=== PATIENT | female | born 1945 | race Caucasian/White ===

== ENCOUNTER 2017-10-19 14:15 | Inpatient (IN) | payer MEDICARE ==
[~2017-10-19] VITALS: Ht 152.4 cm; Wt 51.3 kg
[2017-10-19] MEDS ORDERED: ONDANSETRON 2MG/ML, 2ML IVPush ONE (14:30)
[2017-10-19] MEDS ORDERED: SODIUM CHLORIDE 0.9% 1,000ML IVBOLUS ONE (14:30)
[2017-10-19] MEDS ORDERED: ONDANSETRON 2MG/ML, 2ML ONE (14:40)
[2017-10-19 15:00] LABS: ALBUMIN 3.3 g/dL (3.4-5.0); ANION GAP 15 mmol/L (5-15); CALCIUM 8.4 mg/dL (8.5-10.1); CHLORIDE 91 mmol/L (98-107)
[2017-10-19 15:08] LABS: ALKALINE PHOSPHATASE 139 U/L (45-117); BILIRUBIN,TOTAL 1.6 mg/dL (0.2-1.0); CREATININE 0.66 mg/dL (0.55-1.02); TOTAL PROTEIN 8.5 g/dL (6.4-8.2); TROPONIN I < 0.015 ng/mL (0.000-0.045)
[2017-10-19 15:16] LABS: ALANINE AMINOTRANSFERASE 24 U/L (12-78)
[2017-10-19 15:28] LABS: BASOPHILS # (AUTO) 0.09 x10^3/uL (0-0.1); BASOPHILS % (AUTO) 1 % (0-1); EOSINOPHILS # (AUTO) 0.05 x10^3/uL (0-0.4); EOSINOPHILS % (AUTO) 0 % (1-7); LYMPHOCYTES # (AUTO) 3.49 x10^3/uL (1-3.4); LYMPHOCYTES % (AUTO) 29 % (22-44); MD MORPH REVIEW ONLY; MEAN CORPUSCULAR HEMOGLOBIN 32.9 pg (27.0-34.8); MEAN CORPUSCULAR HGB CONC 33.8 g/dL (32.4-35.8); MEAN CORPUSCULAR VOLUME 97.4 fL (80-100); MONOCYTES # (AUTO) 1.14 x10^3/uL (0.2-0.8); MONOCYTES % (AUTO) 9 % (2-9); NEUTROPHILS # (AUTO) 7.43 x10^3/uL (1.8-6.8); NEUTROPHILS % (AUTO) 61 % (42-75); PLATELET COUNT 280 x10^3/uL (130-400); RED BLOOD COUNT 4.34 x10^6/uL (3.82-5.3); RED CELL DISTRIBUTION WIDTH 13.6 % (9.6-15.2)
[2017-10-19 15:29] LABS: <PLATELET ESTIMATE> ADEQUATE; <RBC MORPHOLOGY> NORMAL; GIANT PLATELETS 1+; LARGE PLATELETS 1+
[2017-10-19] MEDS ORDERED: OMNIPAQUE 350 MG/ML, 75ML BOTTLE ONE (16:08)
[2017-10-19] MEDS ORDERED: AMPICILLIN/SULBACTAM 3 GM in SODIUM CHLORIDE 0.9% 100 ML IV ONE (17:00)
[2017-10-19] MEDS ORDERED: morphine SULFATE 10 MG/ML, 1ML IVPush ONE (17:30)
[2017-10-19] MEDS ORDERED: OXYMETAZOLINE NASAL SPRAY 0.05%, 15ML NAS ONE (17:30)
[2017-10-19] MEDS ORDERED: DEXAMETHASONE 4 MG/ML, 1ML IVPush ONE (17:30)
[2017-10-19] MEDS ORDERED: OXYMETAZOLINE NASAL SPRAY 0.05%, 15ML ONE (17:41)
[2017-10-19] MEDS ORDERED: PROMETHAZINE 25 MG/ML, 1ML ONE (17:41)
[2017-10-19] MEDS ORDERED: DEXAMETHASONE 4 MG/ML, 1ML ONE (17:41)
[2017-10-19] MEDS ORDERED: MORPHINE SULFATE 4 MG/ML, 1ML ONE (17:42)
[2017-10-19] MEDS ORDERED: OMEP20TA62 PO (17:51)
[2017-10-19] MEDS ORDERED: PROMETHAZINE 25 MG/ML, 1ML IM ONE (18:30)
[2017-10-19] MEDS ORDERED: CEFTRIAXONE PMX 1GM/50ML 50 ML ONE (19:59)
[2017-10-19] MEDS: CEFTRIAXONE PMX 1GM/50ML 50 ML IV SCH (20:03)
[2017-10-19 20:31] VITALS: BP 182/92
[2017-10-19] MEDS ORDERED: SODIUM CHLORIDE 0.9% 1,000 ML IV SCH (21:38)
[2017-10-19] MEDS ORDERED: HYDROcodone/APAP 5/325 TABLET PO PRN (22:30)
[2017-10-19] MEDS ORDERED: ACETAMINOPHEN 325 MG TABLET PO PRN (22:30)
[2017-10-19] MEDS ORDERED: TEMAZEPAM 15 MG CAPSULE PO PRN (22:30)
[2017-10-19] MEDS ORDERED: ENALAPRILAT 1.25 MG/ML, 2ML IVPush PRN (22:30)
[2017-10-19] MEDS ORDERED: ONDANSETRON 2MG/ML, 2ML IVPush PRN (22:30)
[2017-10-19] MEDS ORDERED: DOCUSATE 100 MG CAPSULE PO PRN (22:30)
[2017-10-19] MEDS: SODIUM CHLORIDE 0.9% 1,000 ML IV SCH (22:43)
[2017-10-19] MEDS: DEXAMETHASONE 4 MG/ML, 1ML IVPush SCH (23:53)
[2017-10-20] MEDS: AMPICILLIN/SULBACTAM 3 GM in SODIUM CHLORIDE 0.9% 100 ML IV SCH ×3 (00:44→17:27)
[2017-10-20 01:29] VITALS: BP 137/78
[2017-10-20] MEDS: DEXAMETHASONE 4 MG/ML, 1ML IVPush SCH ×4 (05:32→23:36)
[2017-10-20] MEDS: SODIUM CHLORIDE 0.9% 1,000 ML IV SCH ×3 (05:32→22:21)
[2017-10-20 07:04] VITALS: BP 155/84
[2017-10-20] MEDS: OXYMETAZOLINE NASAL SPRAY 0.05%, 15ML NAS SCH ×2 (09:27→19:35)
[2017-10-20 14:08] VITALS: BP 147/78
[2017-10-20 14:46] LABS: CHLORIDE,URINE RANDOM 37 mmol/L; POTASSIUM,URINE RANDOM 51 mmol/L; SODIUM,URINE RANDOM 21 mmol/L
[2017-10-20] MEDS ORDERED: POTASSIUM CHLORIDE 20 MEQ TAB.ER.PRT PO ONE (15:30)
[2017-10-20] MEDS ORDERED: MAGNESIUM SULFATE PMX 2GM/50ML 50 ML IV ONE (15:30)
[2017-10-20 16:49] LABS: BASOPHILS # (AUTO) 0.04 x10^3/uL (0-0.1); BASOPHILS % (AUTO) 0 % (0-1); EOSINOPHILS % (AUTO) 0 % (1-7); LYMPHOCYTES # (AUTO) 1.51 x10^3/uL (1-3.4); LYMPHOCYTES % (AUTO) 14 % (22-44); MD NO; MEAN CORPUSCULAR HGB CONC 33.4 g/dL (32.4-35.8); MEAN CORPUSCULAR VOLUME 98.8 fL (80-100); MEAN PLATELET VOLUME 10.4 fL (7.4-10.4); MONOCYTES # (AUTO) 0.66 x10^3/uL (0.2-0.8); MONOCYTES % (AUTO) 6 % (2-9); NEUTROPHILS # (AUTO) 8.62 x10^3/uL (1.8-6.8); NEUTROPHILS % (AUTO) 80 % (42-75); PLATELET COUNT 270 x10^3/uL (130-400); RED BLOOD COUNT 4.11 x10^6/uL (3.82-5.3); RED CELL DISTRIBUTION WIDTH 14.2 % (9.6-15.2)
[2017-10-20 17:02] LABS: ANION GAP 9 mmol/L (5-15); CALCIUM 8.1 mg/dL (8.5-10.1); CHLORIDE 104 mmol/L (98-107)
[2017-10-20 17:03] LABS: CREATININE 1.01 mg/dL (0.55-1.02)
[2017-10-20] MEDS: CEFTRIAXONE PMX 1GM/50ML 50 ML IV SCH (19:35)
[2017-10-20 20:12] VITALS: BP 142/76
[2017-10-21] MEDS: AMPICILLIN/SULBACTAM 3 GM in SODIUM CHLORIDE 0.9% 100 ML IV SCH ×3 (00:48→16:55)
[2017-10-21 03:18] VITALS: BP 144/87
[2017-10-21 05:17] LABS: MEAN CORPUSCULAR HEMOGLOBIN 32.9 pg (27.0-34.8); MEAN CORPUSCULAR HGB CONC 32.9 g/dL (32.4-35.8); MEAN CORPUSCULAR VOLUME 99.8 fL (80-100); MEAN PLATELET VOLUME 10.7 fL (7.4-10.4); PLATELET COUNT 249 x10^3/uL (130-400); RED BLOOD COUNT 3.89 x10^6/uL (3.82-5.3); RED CELL DISTRIBUTION WIDTH 14.4 % (9.6-15.2)
[2017-10-21] MEDS: SODIUM CHLORIDE 0.9% 1,000 ML IV SCH ×2 (05:22→14:26)
[2017-10-21] MEDS: DEXAMETHASONE 4 MG/ML, 1ML IVPush SCH ×3 (05:22→16:56)
[2017-10-21 05:33] LABS: ANION GAP 4 mmol/L (5-15); CALCIUM 7.6 mg/dL (8.5-10.1); CHLORIDE 109 mmol/L (98-107); CREATININE 0.77 mg/dL (0.55-1.02)
[2017-10-21 06:07] LABS: BASOPHILS # (AUTO) 0.05 x10^3/uL (0-0.1); BASOPHILS % (AUTO) 0 % (0-1); EOSINOPHILS % (AUTO) 0 % (1-7); LYMPHOCYTES # (AUTO) 1.42 x10^3/uL (1-3.4); LYMPHOCYTES % (AUTO) 8 % (22-44); MD SCAN; MONOCYTES # (AUTO) 0.46 x10^3/uL (0.2-0.8); MONOCYTES % (AUTO) 3 % (2-9); NEUTROPHILS # (AUTO) 15.77 x10^3/uL (1.8-6.8); NEUTROPHILS % (AUTO) 89 % (42-75)
[2017-10-21 07:33] VITALS: BP 159/88
[2017-10-21] MEDS: OXYMETAZOLINE NASAL SPRAY 0.05%, 15ML NAS SCH (09:08)
[2017-10-21 12:56] VITALS: BP 151/80
[2017-10-21] MEDS ORDERED: METH4TAB2 PO (13:27)
[2017-10-21] MEDS ORDERED: FLUT9.9S NAS (13:27)
[2017-10-21] MEDS ORDERED: CEFD300C37 PO (13:30)
[2017-10-21] MEDS ORDERED: PNEUMOCOCCAL 23 VACCINE IM-VACC ONE (15:00)
[2017-10-21] MEDS ORDERED: FLU VACC QS2017-18 (36MOS+) UP/PF 0.5 ML IM-VACC ONE (15:00)
== END 2017-10-21 17:12 | disposition home or self-care (01) | DRG 603 ==
LOC: EDBD 14:15 → ED 17:52 → EDIP 17:57 → 3NE 20:22
PROVIDERS: ADMIT Internal Medicine; ATTEND Internal Medicine
DX: L03.213 Periorbital cellulitis (principal); E87.2 Acidosis; E44.1 Mild protein-calorie malnutrition; E87.1 Hypo-osmolality and hyponatremia; E86.0 Dehydration; E83.42 Hypomagnesemia; J01.40 Acute pansinusitis, unspecified; E86.1 Hypovolemia; E87.6 Hypokalemia; J32.0 Chronic maxillary sinusitis; B96.89 Other specified bacterial agents as the cause of diseases classified elsewhere; J32.1 Chronic frontal sinusitis; K21.9 Gastro-esophageal reflux disease without esophagitis; Z90.81 Acquired absence of spleen; Z68.31 Body mass index [BMI] 31.0-31.9, adult
CPT/HCPCS: 36415; 70450; 70482; 71045; 80048; 80053; 82436; 83605; 83690; 83735; 84133; 84300; 84484; 85025; 87070; 87205; 90686; 90732; 93005; 96361; 96372; 96374; 96375; J0295; J0696; J1100; J2405; J2550; Q9967; J2270; J3475; J7030